=== PATIENT | male | born 1965 | race Two or more races ===

== ENCOUNTER 2024-03-07 12:26 | Emergency (ER) | payer OTHER ==
[~2024-03-07] VITALS: Ht 162.6 cm; Wt 80.0 kg
[2024-03-07 12:30] VITALS: O2SAT 99
[2024-03-07] MEDS: ASPIRIN 81MG TABLET PO ONE (13:16)
[2024-03-07] MEDS: NITROGLYCERIN 0.4MG TABLET SL SL PRN (13:17)
[2024-03-07 13:22] LABS: BASOPHILS % 0.3 % (0.0-2.0); EOSINOPHILS % 0.2 % (0.0-5.0); HEMATOCRIT. 48.2 % (42.0-52.0); HEMOGLOBIN. 15.9 g/dL (14.0-18.0); LYMPHOCYTES % 31.2 % (20.0-50.0); MEAN CORPUSCULAR HEMOGLOBIN 29.7 pg (28.0-32.0); MEAN CORPUSCULAR VOLUME 89.9 fL (80.0-94.0); MEAN PLATELET VOLUME 7.9 fl (7.4-10.4); MONOCYTES % 4.2 % (2.0-8.0); NEUTROPHILS % 64.1 % (40.0-76.0); PLATELET 168 x1000/uL (130-400); RED BLOOD CELL COUNT 5.36 mill/uL (4.7-6.1); RED CELL DISTRIBUTION WIDTH 14.2 % (11.6-14.6)
[2024-03-07 13:25] LABS: CHLORIDE 110 mEq/L (98-107); POTASSIUM 3.4 mEq/L (3.5-5.1); SODIUM 146 mEq/L (136-145)
[2024-03-07 13:26] LABS: CALCIUM 8.7 mg/dL (8.7-10.4); CARBON DIOXIDE 22 mEq/L (21-32)
[2024-03-07 13:30] LABS: D-DIMER 0.42 mg/L FEU (<0.50); INR 0.9; PARTIAL THROMBOPLASTIN TIME 27.8 sec (23.4-31.0); PROTHROMBIN TIME 10.3 sec (9.6-11.0)
[2024-03-07 13:31] LABS: CREATININE 0.8 mg/dL (0.6-1.3); GLUCOSE 93 mg/dL (70-105); TROPONIN I HIGH SENSITIVITY 6 ng/L (3.0-53); UREA NITROGEN BLOOD 10 mg/dL (9-23)
[2024-03-07 13:33] LABS: ALANINE AMINOTRANSFERASE 37 IU/L (10-49); ALBUMIN 4.6 g/dL (3.2-4.8); ASPARTATE AMINOTRANSFERASE 47 IU/L (<34); BILIRUBIN TOTAL 0.5 mg/dL (0.1-1.0); PROTEIN TOTAL 7.3 g/dL (6.0-8.3)
[2024-03-07 14:10] VITALS: BP 122/77; PULSE 80; RESP 23; TEMP 36.78072; O2SAT 94
[2024-03-07] MEDS ORDERED: MORPHINE SULFATE 4 MG/ML INJ (FOR IV/IM USE) IV ONE (14:30)
[2024-03-07] MEDS ORDERED: ONDANSETRON HCL 4MG/2ML INJ IV ONE (14:30)
[2024-03-07 14:59] LABS: ETHANOL BLOOD 362 mg/dL (<10)
== END 2024-03-07 15:13 | disposition left against medical advice (07) ==
LOC: ER 12:26 → EDBEDREQ 14:22 → EDBEDREQTM 14:22 → ER 15:13
DX: R07.89 Other chest pain (principal); F10.229 Alcohol dependence with intoxication, unspecified; Y90.9 Presence of alcohol in blood, level not specified
CPT/HCPCS: 80053; 80320; 83880; 83690; 83735; 85025; 85379; 85610; 85730; 84484; 36415; 71045; 93005; 99285; Z7610 ×5; G0480

== ENCOUNTER 2024-03-09 09:39 | Emergency (ER) | payer OTHER ==
[~2024-03-09] VITALS: Ht 165.1 cm; Wt 82.0 kg
[2024-03-09 09:46] VITALS: O2SAT 99
[2024-03-09] MEDS ORDERED: IPRATROPIUM BROMIDE (0.02%) 0.5MG/2.5ML NEB HHN STA (09:59)
[2024-03-09] MEDS ORDERED: ALBUTEROL (0.083%) 2.5MG/3ML NEB HHN SCH (10:00)
[2024-03-09] MEDS: METHYLPREDNISOLONE SOD SUCC 125MG/2ML (ACT-O-VIAL) IV STA (10:12)
[2024-03-09 10:19] LABS: BASOPHILS % 0.4 % (0.0-2.0); EOSINOPHILS % 0.9 % (0.0-5.0); HEMATOCRIT. 46.2 % (42.0-52.0); HEMOGLOBIN. 15.5 g/dL (14.0-18.0); LYMPHOCYTES % 44.2 % (20.0-50.0); MEAN CORPUSCULAR HEMOGLOBIN 30.4 pg (28.0-32.0); MEAN CORPUSCULAR HGB CONC 33.5 g/dL (31.0-37.0); MEAN CORPUSCULAR VOLUME 90.8 fL (80.0-94.0); MEAN PLATELET VOLUME 7.8 fl (7.4-10.4); MONOCYTES % 5.9 % (2.0-8.0); NEUTROPHILS % 48.6 % (40.0-76.0); PLATELET 156 x1000/uL (130-400); RED BLOOD CELL COUNT 5.09 mill/uL (4.7-6.1); RED CELL DISTRIBUTION WIDTH 14.3 % (11.6-14.6); WHITE BLOOD COUNT 5.2 x1000/uL (4.5-11.0)
[2024-03-09 10:24] LABS: CHLORIDE 108 mEq/L (98-107); POTASSIUM 3.2 mEq/L (3.5-5.1); SODIUM 144 mEq/L (136-145)
[2024-03-09 10:25] LABS: CALCIUM 8.6 mg/dL (8.7-10.4); CARBON DIOXIDE 24 mEq/L (21-32)
[2024-03-09 10:30] LABS: CREATININE 0.9 mg/dL (0.6-1.3); GLUCOSE 114 mg/dL (70-105); UREA NITROGEN BLOOD 13 mg/dL (9-23)
[2024-03-09 10:31] LABS: TROPONIN I HIGH SENSITIVITY 9 ng/L (3.0-53)
[2024-03-09 12:05] VITALS: BP 134/84; PULSE 75; RESP 15; TEMP 36.89184; O2SAT 100
== END 2024-03-09 12:08 | disposition left against medical advice (07) ==
LOC: ER 09:44
DX: R07.9 Chest pain, unspecified (principal); F10.20 Alcohol dependence, uncomplicated; Y90.9 Presence of alcohol in blood, level not specified
CPT/HCPCS: 80048; 83880; 85025; 85379; 84484; 36415; 71045; 93005; 96374; 99285; J2919; Z7610

== ENCOUNTER 2024-04-28 13:29 | Emergency (ER) | payer OTHER ==
[~2024-04-28] VITALS: Ht 175.3 cm; Wt 85.0 kg
[2024-04-28 13:30] VITALS: O2SAT 96
[2024-04-28 14:21] VITALS: BP 133/85; PULSE 90; RESP 18; TEMP 36.66960; O2SAT 95
[2024-04-28 14:50] LABS: CHLORIDE 112 mEq/L (98-107); POTASSIUM 3.6 mEq/L (3.5-5.1); SODIUM 152 mEq/L (136-145)
[2024-04-28 14:51] LABS: CALCIUM 8.6 mg/dL (8.7-10.4); CARBON DIOXIDE 29 mEq/L (21-32)
[2024-04-28 14:53] LABS: BASOPHILS % 0.2 % (0.0-2.0); EOSINOPHILS % 0.2 % (0.0-5.0); HEMOGLOBIN. 16.2 g/dL (14.0-18.0); LYMPHOCYTES % 32.9 % (20.0-50.0); MEAN CORPUSCULAR HEMOGLOBIN 30.3 pg (28.0-32.0); MEAN CORPUSCULAR HGB CONC 33.1 g/dL (31.0-37.0); MEAN CORPUSCULAR VOLUME 91.7 fL (80.0-94.0); MEAN PLATELET VOLUME 7.8 fl (7.4-10.4); MONOCYTES % 3.3 % (2.0-8.0); NEUTROPHILS % 63.4 % (40.0-76.0); PLATELET 190 x1000/uL (130-400); RED BLOOD CELL COUNT 5.34 mill/uL (4.7-6.1); WHITE BLOOD COUNT 8.8 x1000/uL (4.5-11.0)
[2024-04-28 14:55] LABS: CREATININE 0.9 mg/dL (0.6-1.3)
[2024-04-28 14:56] LABS: GLUCOSE 113 mg/dL (70-105); UREA NITROGEN BLOOD 9 mg/dL (9-23)
[2024-04-28 14:57] LABS: ETHANOL BLOOD 300 mg/dL (<10)
[2024-04-28] MEDS: PANTOPRAZOLE SODIUM 40 MG/VIAL IV ONE (14:57)
[2024-04-28] MEDS: ONDANSETRON HCL 4MG/2ML INJ IV ONE (14:57)
[2024-04-28 14:58] LABS: ALANINE AMINOTRANSFERASE 41 IU/L (10-49); ALBUMIN 4.3 g/dL (3.2-4.8); ASPARTATE AMINOTRANSFERASE 55 IU/L (<34); BILIRUBIN DIRECT 0.2 mg/dL (<=3.0); BILIRUBIN TOTAL 0.6 mg/dL (0.1-1.0); PROTEIN TOTAL 7.1 g/dL (6.0-8.3); TROPONIN I HIGH SENSITIVITY 10 ng/L (3.0-53)
[2024-04-28 14:59] LABS: PROTHROMBIN TIME 10.9 sec (9.6-11.0)
== END 2024-04-28 15:26 | disposition left against medical advice (07) ==
LOC: ER 13:30
DX: R07.89 Other chest pain (principal); F10.129 Alcohol abuse with intoxication, unspecified; Y90.8 Blood alcohol level of 240 mg/100 ml or more
CPT/HCPCS: 80076; 80048; 80320; 83880; 83690; 85025; 85610; 84484; 36415; 71045; 93005; 96374; 96375; 99285; J2405; J2470; Z7610 ×2; G0480

== ENCOUNTER 2024-04-29 00:24 | Emergency (ER) | payer OTHER ==
[~2024-04-29] VITALS: Ht 172.7 cm; Wt 83.0 kg
[2024-04-29 00:28] VITALS: O2SAT 98
[2024-04-29 00:54] LABS: BASOPHILS % 0.3 % (0.0-2.0); EOSINOPHILS % 0.2 % (0.0-5.0); HEMATOCRIT. 46.9 % (42.0-52.0); HEMOGLOBIN. 16.1 g/dL (14.0-18.0); LYMPHOCYTES % 29.6 % (20.0-50.0); MEAN CORPUSCULAR HEMOGLOBIN 31.5 pg (28.0-32.0); MEAN CORPUSCULAR HGB CONC 34.3 g/dL (31.0-37.0); MEAN CORPUSCULAR VOLUME 91.9 fL (80.0-94.0); MEAN PLATELET VOLUME 7.7 fl (7.4-10.4); MONOCYTES % 4.6 % (2.0-8.0); NEUTROPHILS % 65.3 % (40.0-76.0); PLATELET 169 x1000/uL (130-400); RED BLOOD CELL COUNT 5.11 mill/uL (4.7-6.1); RED CELL DISTRIBUTION WIDTH 13.7 % (11.6-14.6); WHITE BLOOD COUNT 10.9 x1000/uL (4.5-11.0)
[2024-04-29 01:00] LABS: CHLORIDE 112 mEq/L (98-107); POTASSIUM 3.2 mEq/L (3.5-5.1); SODIUM 151 mEq/L (136-145)
[2024-04-29 01:01] LABS: CALCIUM 8.3 mg/dL (8.7-10.4); CARBON DIOXIDE 26 mEq/L (21-32)
[2024-04-29 01:06] LABS: CREATININE 0.9 mg/dL (0.6-1.3); GLUCOSE 105 mg/dL (70-105); UREA NITROGEN BLOOD 9 mg/dL (9-23)
[2024-04-29 01:07] LABS: TROPONIN I HIGH SENSITIVITY 13 ng/L (3.0-53)
[2024-04-29 01:22] LABS: ETHANOL BLOOD 436 mg/dL (<10)
[2024-04-29 03:44] VITALS: BP 132/94; PULSE 94; RESP 18; TEMP 37.05852; O2SAT 98
== END 2024-04-29 03:58 | disposition short-term general hospital (02) ==
LOC: ER 00:24
DX: I24.9 Acute ischemic heart disease, unspecified (principal); E87.0 Hyperosmolality and hypernatremia; I25.2 Old myocardial infarction; R00.2 Palpitations; F10.129 Alcohol abuse with intoxication, unspecified
CPT/HCPCS: 36415; 71045; 80048; 80320; 84484; 85025; 85379; 99285; G0480